=== PATIENT | female | born 1985 | race Hispanic/Latino ===

== ENCOUNTER 2024-09-03 11:58 | Emergency (ER) | payer OTHER ==
[2024-09-03 12:27] VITALS: BP 117/69
[2024-09-03 12:32] VITALS: BP 104/87
[2024-09-03] MEDS ORDERED: BACTRIM DS1 TAB PO (12:33)
[2024-09-03 12:46] VITALS: BP 97/72
[2024-09-03 13:00] VITALS: BP 101/67
[2024-09-03 13:02] VITALS: BP 101/67
== END 2024-09-03 13:05 | disposition home or self-care (01) | DRG 603 ==
LOC: ED 11:58
DX: L02.416 Cutaneous abscess of left lower limb (principal)